=== PATIENT | male | born 2005 | race Two or more races ===

== ENCOUNTER 2023-12-01 19:59 | Emergency (ER) | payer MEDICAID, OTHER ==
[~2023-12-01] VITALS: Ht 172.7 cm; Wt 59.7 kg
[2023-12-01 20:27] VITALS: BP 113/50; PULSE 69; RESP 16; O2SAT 98
[2023-12-02] MEDS ORDERED: IBUP-1456 PO (00:28)
== END 2023-12-02 00:39 | disposition home or self-care (01) ==
LOC: ER 19:59
DX: S62.012A Displaced fracture of distal pole of navicular [scaphoid] bone of left wrist, initial encounter for closed fracture (principal); S60.512A Abrasion of left hand, initial encounter; Z79.899 Other long term (current) drug therapy; W22.8XXA Striking against or struck by other objects, initial encounter; Y93.89 Activity, other specified; Y92.89 Other specified places as the place of occurrence of the external cause; Y99.8 Other external cause status
CPT/HCPCS: 29125; 73110; 73130